=== PATIENT | female | born 1995 | race Caucasian/White ===

== ENCOUNTER 2019-10-22 00:55 | Emergency (ER) | payer MEDICAID ==
[~2019-10-22] VITALS: Ht 160 cm; Wt 71.2 kg
[2019-10-22 01:06] VITALS: Ht 160 cm; Wt 71.2 kg
[2019-10-22 04:26] VITALS: BP 98/63
== END 2019-10-22 04:26 | disposition home or self-care (01) ==
LOC: ED 00:55
DX: R07.89 Other chest pain (principal); R06.02 Shortness of breath